=== PATIENT | female | born 1965 | race Caucasian/White ===

== ENCOUNTER 2019-01-30 18:50 | Emergency (ER) | payer OTHER ==
[~2019-01-30] VITALS: Ht 162.6 cm; Wt 83.6 kg
[~2019-01-30 18:50] MED LIST: ABILIFY5 MG PO; ADDERALL XR25 MG PO; ANTIDEPRESSION
[2019-01-30 19:30] VITALS: TEMP 98
[2019-01-30 21:41] LABS: COLLECTION METHOD CLEAN CATCH
[2019-01-30 21:57] LABS: BASO # 0.1 (0.0-0.2); BASO % 0.4 % (0.0-2.0); EOS # 0.2 (0.0-0.7); EOS % 1.4 % (0-4.0); GRAN # 9.6 (1.4-6.5); GRAN % 69.6 % (42.2-75.2); HEMATOCRIT 41.1 % (37.0-47.0); HEMOGLOBIN 13.8 g/dl (12.5-16.0); LYMPH # 3.2 (1.2-3.4); LYMPH % 23.1 % (20.0-51.0); MEAN CELL VOLUME 86 fl (80.0-100.0); MEAN CORPUSCULAR HEMOGLOBIN 29 pg (27.0-31.0); MEAN CORPUSCULAR HGB CONC 34 g/dl (33.0-37.0); MEAN PLATELET VOLUME 9.9 fl (7.4-10.4); MONO # 0.7 (0.1-0.6); MONO % 5.2 % (1.7-9.3); PLATELET COUNT 344 K/mm3 (130-400); RED BLOOD COUNT 4.76 M/mm3 (4.10-5.30); REDCELL DISTRIBUTION WIDTH-CV 14.2 % (11.5-14.5)
[2019-01-30 22:08] LABS: ALBUMIN 4.3 gm/dL (3.5-5.0); BILIRUBIN,TOTAL 0.4 mg/dL (0.0-1.0); CALCIUM 9.3 mg/dL (8.4-10.2); CREATININE, serum 1.04 (0.52-1.25); POTASSIUM 3.8 mmol/L (3.4-5.0)
[2019-01-30 22:14] LABS: MUCOUS Present /lpf; PH 5 (5-8); URINE APPEARANCE Hazy; URINE BACTERIA None Seen /hpf; URINE BILIRUBIN Negative (NEGATIVE); URINE BLOOD Negative (NEGATIVE); URINE COLOR Yellow; URINE GLUCOSE Negative (NEGATIVE); URINE KETONE Negative (NEGATIVE); URINE LEUKOCYTE ESTERASE 1+ (NEGATIVE); URINE NITRATE Negative (NEGATIVE); URINE PROTEIN(semi-quant) Negative (NEGATIVE); URINE UROBILINOGEN Negative (NEGATIVE)
[2019-01-30] MEDS ORDERED: CEFTIN500 MG PO (23:34)
[2019-01-30] MEDS ORDERED: NORCO 325 MG-51 TAB PO (23:34)
[2019-01-30 23:57] VITALS: BP 121/84; PULSE 68
== END 2019-01-30 23:57 | disposition home or self-care (01) ==
LOC: COL.ER 18:50
PROVIDERS: Emergency Medicine
DX: N12 Tubulo-interstitial nephritis, not specified as acute or chronic (principal); Z88.8 Allergy status to other drugs, medicaments and biological substances
CPT/HCPCS: J0696; J1170; J1885; J2405; J7030

== ENCOUNTER → 2019-06-09 | Outpatient (CLI) | payer OTHER ==
[~2019-06-09] MED LIST changes: +CEFTIN500 MG PO; +NORCO 325 MG-51 TAB PO
== END ==
LOC: COL.VAS 09:54
DX: M79.671 Pain in right foot (principal)

== ENCOUNTER 2019-08-26 11:07 | Inpatient (IN) | payer OTHER ==
[~2019-08-26] VITALS: Ht 162.6 cm; Wt 72.2 kg
[2019-08-26 12:08] LABS: HEMATOCRIT 37.1 % (37.0-47.0); HEMOGLOBIN 12.1 g/dl (12.5-16.0); MEAN CELL VOLUME 87 fl (80.0-100.0); MEAN CORPUSCULAR HEMOGLOBIN 28 pg (27.0-31.0); MEAN CORPUSCULAR HGB CONC 33 g/dl (33.0-37.0); MEAN PLATELET VOLUME 9.8 fl (7.4-10.4); PLATELET COUNT 254 K/mm3 (130-400); RED BLOOD COUNT 4.29 M/mm3 (4.10-5.30); REDCELL DISTRIBUTION WIDTH-CV 16.2 % (11.5-14.5)
[2019-08-26 12:10] LABS: INR 2.1 (0.8-3.0); PROTHROMBIN TIME 24.9 SECONDS (9.7-12.8)
[2019-08-26 12:18] LABS: ALBUMIN 4.3 gm/dL (3.5-5.0); BILIRUBIN,TOTAL 0.3 mg/dL (0.0-1.0); C-REACTIVE PROTEIN 2.4 mg/dL (0.0-0.9); CALCIUM 9.3 mg/dL (8.4-10.2); CREATININE, serum 0.82 (0.52-1.25); TOTAL PROTEIN 7.6 gm/dL (6.4-8.2)
[2019-08-26 12:44] LABS: BAND 2 % (0-10); EOSINOPHIL 2 % (0-4); LYMPHOCYTE 10 % (20.0-51.0); NEUTROPHILS 84 % (42.0-75.2); PLATELET ESTIMATE NORMAL (NORMAL)
[2019-08-26 12:45] LABS: ANISOCYTOSIS 1+
[2019-08-26] MEDS ORDERED: COUMADIN 5MG5 MG/TAB PO (14:18)
--- NOTE | 2019-08-26 18:42 | NUR ---
Got report for patient from ED nurse. report was given to night nurse
--- NOTE | 2019-08-26 18:50 | NUR ---
Arrived to medical floor at this time. Orientated to room. Denies needs.
[2019-08-26] MEDS ORDERED: ASPIRIN 81M81 MG/TA2 PO (19:13)
[2019-08-26] MEDS ORDERED: COUMADIN 22.5 MG/TAB PO (19:13)
[2019-08-26] MEDS ORDERED: PREDNISONE20 MG PO (19:14)
--- NOTE | 2019-08-26 19:23 | NUR ---
Resting in bed. Assessment complete. Right lower lobe crackles otherwise clear. Heart sounds normal. Bowels active x4. Pulses strong throughout. Right lower leg edema +1 with erythema. Reports pain in right lower extremity. Heparin gtt infusing at 13.1ml/hr into right AC without complications. Orientated to medical floor. Request something for pain. Denies other needs/questions at this time. Call light in reach. Spoke with Dr. Garrison for pain medications. Telephone order for norco 5/325 PO Q8H PRN given.
[2019-08-26 20:00] VITALS: BP 142/77; PULSE 61
[2019-08-26 20:01] VITALS: BP 142/77; PULSE 66
--- NOTE | 2019-08-26 20:15 | NUR ---
Provided patient RONIT jack at this time. Call light in reach.
--- NOTE | 2019-08-26 21:00 | NUR ---
CASTRO hose on as ordered. Denies needs. call light in reach.
[2019-08-26 22:12] VITALS: BP 123/90; PULSE 66; TEMP 98.8
--- NOTE | 2019-08-26 23:54 | NUR ---
Resting in bed. Rating pain 5/10, tolerable level. Denies needs. call light in reach.
[2019-08-27] VITALS (7 sets, daily range): BP systolic 106–157; BP diastolic 62–84; PULSE 57–67; TEMP 97.4–98.6
--- NOTE | 2019-08-27 01:13 | NUR ---
HepXa 0.93. Stopped at this time for 60 minutes per protocol.
--- NOTE | 2019-08-27 01:15 | NUR ---
HepXa 0.93. Stopped at this time
--- NOTE | 2019-08-27 02:14 | NUR ---
Patient reports continued right lower extremity pain. Spoke with sunita Bermudez to change norco to Q4H PRN.
--- NOTE | 2019-08-27 02:18 | NUR ---
Rates pain in right lower leg at 8/10. Provided with PRN norco at this time
--- NOTE | 2019-08-27 02:22 | NUR ---
Heparin gtt restarted at 0215. Dosing verified by KALPESH Douglas
--- NOTE | 2019-08-27 06:19 | NUR ---
Patient required x2 doses of norco for pain control in right lower extremity throughout night. Otherwise uneventful. Resting in bed this AM. Call light in reach.
--- NOTE | 2019-08-27 06:42 | NUR ---
Report given to KALPESH Avila
[2019-08-27 08:26] LABS: BASO # 0.1 (0.0-0.2); BASO % 0.5 % (0.0-2.0); EOS # 0.4 (0.0-0.7); GRAN # 8.5 (1.4-6.5); GRAN % 58.6 % (42.2-75.2); HEMATOCRIT 38.5 % (37.0-47.0); HEMOGLOBIN 12.3 g/dl (12.5-16.0); LYMPH # 4.6 (1.2-3.4); LYMPH % 31.7 % (20.0-51.0); MEAN CELL VOLUME 87 fl (80.0-100.0); MEAN CORPUSCULAR HEMOGLOBIN 28 pg (27.0-31.0); MEAN CORPUSCULAR HGB CONC 32 g/dl (33.0-37.0); MEAN PLATELET VOLUME 10.1 fl (7.4-10.4); MONO # 0.8 (0.1-0.6); MONO % 5.6 % (1.7-9.3); PLATELET COUNT 275 K/mm3 (130-400); RED BLOOD COUNT 4.44 M/mm3 (4.10-5.30); REDCELL DISTRIBUTION WIDTH-CV 16.6 % (11.5-14.5)
[2019-08-27 08:35] LABS: CALCIUM 9.6 mg/dL (8.4-10.2); CREATININE, serum 0.7 (0.52-1.25); POTASSIUM 4.1 mmol/L (3.4-5.0)
--- NOTE | 2019-08-27 09:28 | NUR ---
hepXa 0.57, no changed, continue to run at 11ml/hr, next recheck at 1500
--- NOTE | 2019-08-27 09:52 | NUR ---
Assessment completed, alert/oriented, reports 01/20 right leg pain/ [place] given per request, pedal pulses are palpable, no redness or swelling noted to BLE, lungs CTA/ no resp.difficulty noted, heart RRR, heparin gtt infusin at 11ml/hr (1100 units/ hr), she denies other needs at this time, will continue to monitor
--- NOTE | 2019-08-27 14:00 | NUR ---
patient is going down for IVC fileter placement at this time
--- NOTE | 2019-08-27 14:48 | NUR ---
SEE MERGE FOR MEDICATION ADMINISTRATION TIMES AND INTRA AND POST SEDATION ASSESSMENTS.
--- NOTE | 2019-08-27 16:04 | NUR ---
Heparin gtt stopped at 1400 for IVC filter placement, patient arrived back to floor at 1515, VS stable, heparin restarted at previous rate of 11ml/hr at 1520
--- NOTE | 2019-08-27 19:13 | NUR ---
Patient still doing well post IVC filter placement, right groin access site is soft and non-tender, dressing C/D/I
--- NOTE | 2019-08-27 20:15 | NUR ---
Patient reports unrelieved pain in right lower extremity 02/20. Per Dr. Bladimir dorsey to increase dose to 1-2 tabs Q4H PRN. Will provide to patient
--- NOTE | 2019-08-27 20:20 | NUR ---
Resting in bed. Assessment complete. Lungs clear. Heart sounds normal. Bowels active x4. Pulses strong throughout. Right lower extremity edema +1. IV to right AC infusing heparin at 11 ml/hr. Reports 8/10 right lower extremity pain. Would like norco dose increased. Denies other needs at this time. Call light in reach.
[2019-08-28] VITALS (7 sets, daily range): BP systolic 94–128; BP diastolic 53–94; PULSE 55–66; TEMP 97.5–98.4
--- NOTE | 2019-08-28 00:43 | NUR ---
Reports 8/10 right leg pain. Provided with RONIT jack at this time. Call light in reach.
--- NOTE | 2019-08-28 02:57 | NUR ---
Telemetry called stating patient pulse dropping into 40s. Patient asymptomatic at this time. Spoke with Dr. Bladimir dorsey to decrease telemetry parameters to 40
--- NOTE | 2019-08-28 05:20 | NUR ---
Reports 8/10 right leg pain after ambulating to restroom. Provided with PRN norco at this time.
[2019-08-28 06:11] LABS: BASO # 0.1 (0.0-0.2); BASO % 0.5 % (0.0-2.0); EOS # 0.5 (0.0-0.7); EOS % 3.7 % (0-4.0); GRAN # 6.8 (1.4-6.5); GRAN % 56.9 % (42.2-75.2); HEMATOCRIT 37.2 % (37.0-47.0); LYMPH # 3.9 (1.2-3.4); LYMPH % 32.1 % (20.0-51.0); MEAN CELL VOLUME 87 fl (80.0-100.0); MEAN CORPUSCULAR HEMOGLOBIN 28 pg (27.0-31.0); MEAN CORPUSCULAR HGB CONC 32 g/dl (33.0-37.0); MEAN PLATELET VOLUME 10.2 fl (7.4-10.4); MONO # 0.7 (0.1-0.6); MONO % 6.1 % (1.7-9.3); PLATELET COUNT 274 K/mm3 (130-400); RED BLOOD COUNT 4.29 M/mm3 (4.10-5.30); REDCELL DISTRIBUTION WIDTH-CV 16.5 % (11.5-14.5)
[2019-08-28 06:26] LABS: CALCIUM 9.3 mg/dL (8.4-10.2); CREATININE, serum 0.78 (0.52-1.25); POTASSIUM 4.2 mmol/L (3.4-5.0)
--- NOTE | 2019-08-28 06:30 | NUR ---
Patient required PRN norco x3 throughout night for right lower extremity pain. Otherwise uneventful night. Resting in bed this AM.
--- NOTE | 2019-08-28 06:41 | NUR ---
Report given to KALPESH Avila
--- NOTE | 2019-08-28 07:14 | NUR ---
HepXa level 0.55, no change and continue TRA 11ml/hr, next level check on 08/29/19 @ 0600
[2019-08-28 07:31] LABS: ERYTHROCYTE SEDIMENTATION RATE 23 mm/hr (0-30)
--- NOTE | 2019-08-28 08:13 | NUR ---
Assessment completed, alert/oriented, vital signs stable, reporting still having some right leg pain/ [place] dosing increased overnight and this has helped decrease discomfort, NO redness/warmth/swelling noted to RLE, distal pulses are palpable, lungs CTA/ no resp.difficulty noted, O2 sats WNL on room air, Heparin Gtt infusing at 11 ml/hr/ next HepXa check 08/30/19 @ 0600, right groin venous access site S/p IVC filter placment is soft non-tender and dressing is C/D/I, she denies other needs at this time
--- NOTE | 2019-08-28 14:34 | NUR ---
Plan: To return home with boyfriend Kenneth [phone] as care support. Patient also indicated that she wanted boyfriend listed as EMR. Patient does not presently have a DPOA and declined one at this time. Patient resides out between [facility]. Assess: SW met with patient at her bedside. Patient reported that she does not utilize any DME, and that her PCP is Dr. Tidwell with no upcoming appointments. Patient reported that [facility] with no complications. Patient declined the need for HH services at this time. Patient did report concern about not having enough income, and needing to apply for SSDI. Plan: Patient was educated about [facility] services that would be able to assist Patient in applying for social security. She was provided with contact information for [facility]. Patient was also provided a community resource packet with contact information and application site highlighted, and other community resources that could assist her. SW will continue to follow.
[2019-08-28 16:01] LABS: COLLECTION METHOD CLEAN CATCH
[2019-08-28 16:12] LABS: PH 6 (5-8); SQUAMOUS EPITHELIAL 0-2 /hpf; URINE APPEARANCE Clear; URINE BACTERIA Rare /hpf; URINE BILIRUBIN Negative (NEGATIVE); URINE BLOOD 1+ (NEGATIVE); URINE COLOR Straw; URINE GLUCOSE Negative (NEGATIVE); URINE KETONE Negative (NEGATIVE); URINE LEUKOCYTE ESTERASE Negative (NEGATIVE); URINE NITRATE Negative (NEGATIVE); URINE PROTEIN(semi-quant) Negative (NEGATIVE); URINE RBC 0-2 /hpf; URINE UROBILINOGEN Negative (NEGATIVE)
--- NOTE | 2019-08-28 20:07 | NUR ---
Resting in bed. Assessment complete. Bases bilaterally crackles otherwise clear. No shortness of breath. Heart sounds clear. Pulses strong throughout. No edema noted at this time. IV right AC heparin infusing at 11 ml/hr per protocol. Reports 5/10 right lower leg pain. Request norco at 2129. Reports nausea, zofran due at 2129. Denies other needs at this time. Call light in reach.
--- NOTE | 2019-08-28 21:28 | NUR ---
Rates pain 8/10 in right lower leg. Provided with PRN norco and reports nausea. Providing PRN zofran. Denies other needs at this time
--- NOTE | 2019-08-29 00:18 | NUR ---
Sitting in bed. Denies needs. Denies pain. Call light in reach.
[2019-08-29 03:55] VITALS: BP 110/57; PULSE 57; TEMP 98.4
--- NOTE | 2019-08-29 05:59 | NUR ---
Patient required x2 doses of norco and x2 doses of zofran for right lower leg pain and nausea. Otherwise uneventful night. Resting in bed this AM. Call light in reach.
[2019-08-29 06:20] LABS: BASO # 0.1 (0.0-0.2); BASO % 0.4 % (0.0-2.0); EOS # 0.4 (0.0-0.7); EOS % 3.7 % (0-4.0); GRAN # 7.4 (1.4-6.5); GRAN % 65.6 % (42.2-75.2); HEMOGLOBIN 11.8 g/dl (12.5-16.0); LYMPH # 2.8 (1.2-3.4); LYMPH % 24.2 % (20.0-51.0); MEAN CELL VOLUME 87 fl (80.0-100.0); MEAN CORPUSCULAR HEMOGLOBIN 28 pg (27.0-31.0); MEAN CORPUSCULAR HGB CONC 32 g/dl (33.0-37.0); MEAN PLATELET VOLUME 10.4 fl (7.4-10.4); MONO # 0.6 (0.1-0.6); MONO % 5.5 % (1.7-9.3); PLATELET COUNT 282 K/mm3 (130-400); RED BLOOD COUNT 4.19 M/mm3 (4.10-5.30); REDCELL DISTRIBUTION WIDTH-CV 16.5 % (11.5-14.5)
[2019-08-29 06:26] LABS: HEMATOCRIT 36.4 % (37.0-47.0)
[2019-08-29 06:35] LABS: CALCIUM 9.5 mg/dL (8.4-10.2); CREATININE, serum 0.76 (0.52-1.25); POTASSIUM 4.1 mmol/L (3.4-5.0)
--- NOTE | 2019-08-29 07:15 | NUR ---
Report given to KALPESH Herring
[2019-08-29 07:56] VITALS: BP 127/64; PULSE 61; TEMP 97.7
--- NOTE | 2019-08-29 09:00 | NUR ---
Assessment charted. Patient A&Ox4, reporting pain in right leg. No pain medication requested. VSS. IV CDI, heparin infusing. No further needs expressed from patient. Call light within reach
[2019-08-29 12:13] VITALS: BP 119/65; PULSE 59; TEMP 98.4
[2019-08-29 15:54] VITALS: BP 124/53; PULSE 65; TEMP 97.9
--- NOTE | 2019-08-29 17:48 | NUR ---
Patient had an uneventful day. VSS. IV CDI, heparin infusing. Patient wheeled around hallway by family member. Complaints of pain in right forearm and right leg. No pain medication requested. No further needs expressed from patient. Call light within reach
[2019-08-29 19:29] VITALS: BP 93/62; PULSE 90; TEMP 97.9
--- NOTE | 2019-08-29 19:45 | NUR ---
Shift assessment complete. Pt resting in bed, awake, a&o, cooperative c cares. Pt reports continued pain to RLE, PRN pain med recently admin. Pt denies any other c/o. IV patent; hep gtt infusing per orders. Pt denies further needs. Call light in reach, will continue to monitor.
[2019-08-29 23:19] VITALS: BP 111/68; PULSE 66; TEMP 97.3
[2019-08-30 03:15] VITALS: BP 116/61; PULSE 71; TEMP 97.6
[2019-08-30 06:35] LABS: BASO # 0.1 (0.0-0.2); BASO % 0.4 % (0.0-2.0); EOS # 0.4 (0.0-0.7); EOS % 3.1 % (0-4.0); GRAN # 8.6 (1.4-6.5); GRAN % 70.6 % (42.2-75.2); HEMOGLOBIN 11.8 g/dl (12.5-16.0); LYMPH # 2.4 (1.2-3.4); LYMPH % 19.8 % (20.0-51.0); MEAN CELL VOLUME 86 fl (80.0-100.0); MEAN CORPUSCULAR HEMOGLOBIN 28 pg (27.0-31.0); MEAN CORPUSCULAR HGB CONC 33 g/dl (33.0-37.0); MEAN PLATELET VOLUME 10.2 fl (7.4-10.4); MONO # 0.7 (0.1-0.6); MONO % 5.6 % (1.7-9.3); PLATELET COUNT 293 K/mm3 (130-400); RED BLOOD COUNT 4.21 M/mm3 (4.10-5.30); REDCELL DISTRIBUTION WIDTH-CV 16.4 % (11.5-14.5)
[2019-08-30 06:47] LABS: HEMATOCRIT 36.3 % (37.0-47.0)
--- NOTE | 2019-08-30 07:25 | NUR ---
Radiology called about pt procedure today. Pt on hep gtt, needs to be stopped for at least 4 hours. Discussed with pharmacy and radiology. Hep gtt stopped at 0715. Pt to now have lower Rt neck biopsy this afternoon. Will have consent signed.
[2019-08-30 07:50] LABS: INR 1.1 (0.8-3.0); PROTHROMBIN TIME 13.3 SECONDS (9.7-12.8)
[2019-08-30 08:27] VITALS: BP 127/68; PULSE 59; TEMP 97.8
--- NOTE | 2019-08-30 09:59 | NUR ---
My instructor, Stella Denise, was present at the time of the medication administration of [place] and Zofran. During which, as allowed, pt was able to take a small sip of water to get the medication down. Pt recieved this supervised, pharmacological intervention at 9:55.
--- NOTE | 2019-08-30 10:34 | NUR ---
Pt assessment completed and charted. Pt has Ria student also caring for pt this morning. Pt sitting in bed, A&O, independent in room. Pt has RAC IV, had hep gtt running at 11 ml/hr this morning, stopped at 0715 for procedure this afternoon. Pt to have US guided biopsy to right lower neck. Pt rated leg pain 3/10 earlier this morning and then told the student it was now at a 7/10. Per pt the "pain comes and goes". Pt received [place] and Zofran per sep. Pt has rt leg pain from toes to behind knee. Minimal swelling noted, no redness, and rt leg is slightly warmer to the touch. Pt on room air, breathing is even and unlabored. No other concerns expressed at this time.
[2019-08-30 12:00] VITALS: BP 133/55; PULSE 61; TEMP 97.3
--- NOTE | 2019-08-30 12:19 | NUR ---
Pt down for biopsy at this time.
--- NOTE | 2019-08-30 13:05 | NUR ---
Pt back from procedure, bandaid to rt lower neck, CDI. No issues noted. Diet advanced
--- NOTE | 2019-08-30 15:33 | NUR ---
Hep gtt dc'd. Pt switched to Xarelto. Student nurse to administer. Pt to discharge today.
[2019-08-30 15:59] VITALS: BP 120/68; PULSE 65; TEMP 97.4
[2019-08-30] MEDS ORDERED: XARELTO15 MG PO (16:04)
[2019-08-30] MEDS ORDERED: NORCO 325 MG-51 TAB PO (16:07)
--- NOTE | 2019-08-30 17:03 | NUR ---
DENISE met with the patient to follow up on discharge plan. The patient reports that her insurance was through her employer and that she no longer works there. She states that the insurance will no longer be active, as of agustin. She was interested in applying for Medicaid and disability. DENISE consulted Financial Counselor, Jose Rafael. Jose Rafael met with the patient and completed those apps. The patient is being prescribed Xeralto and [place]. She states that she is not able to afford this. DENISE provided the patient with a med voucher to [facility] for those two scripts. Total: $316.44. DENISE faxed the med voucher and scripts to Nathanael at [facility]. DENISE also discussed getting set up with a PCP. The patient was interested in [facility] in [place]. DENISE attempted to contact them to schedule an appointment. DENISE left them two voicemails. DENISE updated the patient. The patient reports that she can contact [facility] to schedule the appointment. The patient is to discharge back home with her boyfriend today, 08/30. No additional needs at this time.
--- NOTE | 2019-08-30 17:20 | NUR ---
REMOVED PATIENT'S IV AT 1700. PATIENT WAS DISCHARGED AND WHEELED TO HER BOYFRIEND'S TRUCK AT THE FRONT ENTRANCE AT 1715 AFTER RN TOMMY WENT OVER HER MEDICATIONS AND DISCHARGE INFORMATION.
--- NOTE | 2019-08-30 17:39 | NUR ---
Pt discharged home, discharge instructions discussed and reviewed w/ patient who verbalized understanding. IV dc'd by nursing manager. All questions answered, no further needs. Pt escorted out via [facility] nursing manager.
--- NOTE | 2019-08-31 14:27 | NUR ---
DENISE received a phone call back from [facility] in [place]. The office manager receptionist reports that their office was closed for Pres's Day. DENISE provided Bj with the patient's contact information. The receptionst reports that they will contact the patient to set up an appointment.
== END 2019-08-30 17:15 | disposition home or self-care (01) | DRG 264 ==
LOC: COL.ER 11:07 → MEDICAL 15:34
PROVIDERS: Hospitalist; Nurse Practitioner; Physician Assistant; ADMIT Student in an Organized Health Care Education/Training Program
PROC: 07B13ZX Excision of Right Neck Lymphatic, Percutaneous Approach, Diagnostic (ICD-10-PCS; principal; 2019-08-30)
DX: I82.401 Acute embolism and thrombosis of unspecified deep veins of right lower extremity (principal); F41.9 Anxiety disorder, unspecified; F90.9 Attention-deficit hyperactivity disorder, unspecified type; F17.210 Nicotine dependence, cigarettes, uncomplicated; R91.1 Solitary pulmonary nodule; F31.9 Bipolar disorder, unspecified; D72.829 Elevated white blood cell count, unspecified; D64.9 Anemia, unspecified; R59.1 Generalized enlarged lymph nodes; Z79.01 Long term (current) use of anticoagulants; Z79.82 Long term (current) use of aspirin; Z86.711 Personal history of pulmonary embolism; Z89.421 Acquired absence of other right toe(s); Z90.710 Acquired absence of both cervix and uterus; Z88.5 Allergy status to narcotic agent; Z88.0 Allergy status to penicillin
CPT/HCPCS: 99223-AI; 99231-AI; 99233-AI; 99239; C1880; J1644; J2250; J3010; Q9967

== ENCOUNTER 2019-09-10 10:31 | Inpatient (IN) | payer OTHER ==
[2019-09-10] VITALS (204 sets, daily range): BP systolic 113–126; BP diastolic 63–81; PULSE 74–80; TEMP 97.5–98.4; O2SAT 92–99
[~2019-09-10] VITALS: Ht 162.6 cm; Wt 78.6 kg
[~2019-09-10 10:31] MED LIST changes: +ASPIRIN 81M81 MG/TA2 PO; +COUMADIN 22.5 MG/TAB PO; +COUMADIN 5MG5 MG/TAB PO; +PREDNISONE20 MG PO; +XARELTO15 MG PO
[2019-09-10 11:06] LABS: BASO # 0.1 (0.0-0.2); BASO % 0.4 % (0.0-2.0); EOS # 0.2 (0.0-0.7); EOS % 1.1 % (0-4.0); GRAN # 10.6 (1.4-6.5); GRAN % 80.8 % (42.2-75.2); LYMPH # 1.6 (1.2-3.4); MEAN CELL VOLUME 88 fl (80.0-100.0); MEAN CORPUSCULAR HGB CONC 32 g/dl (33.0-37.0); MONO # 0.7 (0.1-0.6); MONO % 5.2 % (1.7-9.3); PLATELET COUNT 290 K/mm3 (130-400); RED BLOOD COUNT 3.13 M/mm3 (4.10-5.30); REDCELL DISTRIBUTION WIDTH-CV 16.5 % (11.5-14.5)
[2019-09-10 11:07] LABS: HEMATOCRIT 27.6 % (37.0-47.0); HEMOGLOBIN 8.8 g/dl (12.5-16.0); MEAN CORPUSCULAR HEMOGLOBIN 28 pg (27.0-31.0)
[2019-09-10 11:23] LABS: ALBUMIN 4.6 gm/dL (3.5-5.0); BILIRUBIN,TOTAL 0.3 mg/dL (0.0-1.0); C-REACTIVE PROTEIN 5.6 mg/dL (0.0-0.9); CALCIUM 9.9 mg/dL (8.4-10.2); CREATININE, serum 0.81 (0.52-1.25); POTASSIUM 4.1 mmol/L (3.4-5.0); TOTAL PROTEIN 8.2 gm/dL (6.4-8.2)
[2019-09-10 11:30] LABS: INR 1.3 (0.8-3.0)
[2019-09-10 11:49] LABS: COLLECTION METHOD CLEAN CATCH
[2019-09-10 11:58] LABS: MUCOUS Present /lpf; PH 5 (5-8); URINE APPEARANCE Hazy; URINE BACTERIA Rare /hpf; URINE BILIRUBIN Negative (NEGATIVE); URINE BLOOD 3+ (NEGATIVE); URINE COLOR Yellow; URINE GLUCOSE Negative (NEGATIVE); URINE KETONE Negative (NEGATIVE); URINE LEUKOCYTE ESTERASE Trace (NEGATIVE); URINE NITRATE Negative (NEGATIVE); URINE PROTEIN(semi-quant) Negative (NEGATIVE); URINE RBC 0-2 /hpf; URINE UROBILINOGEN Negative (NEGATIVE)
--- NOTE | 2019-09-10 15:50 | NUR ---
Phone report received from LYUBOV Flores RN. Pt arrived to [facility] room 15 via bed. Pt A/Ox4. c/o nausea. Assessment completed. VSS. Discussed plan of care r/t post vitals and NPO status. Pt verbalized understanding. Call light in reach.
--- NOTE | 2019-09-10 16:03 | NUR ---
Dr Castro at bedside to see pt.
--- NOTE | 2019-09-10 19:00 | NUR ---
RECEIVED REPORT FROM SUSHIL JOHNSON RN. PT SITTING UP IN BED WATCHING TV ON RA. CALL LIGHT WITHIN REACH. DENIES ANY NEEDS AT THIS TIME. VSS.
--- NOTE | 2019-09-10 19:34 | NUR ---
report given to sharan tavares.
[2019-09-10 20:28] LABS: HEMOGLOBIN 6.4 g/dl (12.5-16.0)
--- NOTE | 2019-09-10 20:35 | NUR ---
NOTIFIED ANNABELLA SNYDER OF PT'S HGB 6.4 AND REQUEST FOR CLEAR LIQUID DIET. NEW ORDERS RECEIVED. PT STATES SHE DOES AGREE TO BLOOD ADMINISTRATION AND UPDATED ON POC. CONSENT ON CHART. VSS.
[2019-09-11] VITALS (260 sets, daily range): BP systolic 98–142; BP diastolic 52–81; PULSE 71–78; TEMP 97.3–98.6; O2SAT 91–97
[2019-09-11 05:16] LABS: BASO % 0.2 % (0.0-2.0); EOS # 0.2 (0.0-0.7); EOS % 2.3 % (0-4.0); GRAN # 5.8 (1.4-6.5); GRAN % 70.3 % (42.2-75.2); LYMPH # 1.6 (1.2-3.4); LYMPH % 19.7 % (20.0-51.0); MEAN CELL VOLUME 91 fl (80.0-100.0); MEAN CORPUSCULAR HGB CONC 32 g/dl (33.0-37.0); MEAN PLATELET VOLUME 9.9 fl (7.4-10.4); MONO # 0.6 (0.1-0.6); MONO % 7.1 % (1.7-9.3); RED BLOOD COUNT 2.45 M/mm3 (4.10-5.30); REDCELL DISTRIBUTION WIDTH-CV 15.8 % (11.5-14.5)
[2019-09-11 05:19] LABS: HEMATOCRIT 22.2 % (37.0-47.0); HEMOGLOBIN 7.1 g/dl (12.5-16.0); MEAN CORPUSCULAR HEMOGLOBIN 29 pg (27.0-31.0); PLATELET COUNT 158 K/mm3 (130-400)
[2019-09-11 05:35] LABS: CALCIUM 7.9 mg/dL (8.4-10.2); CREATININE, serum 0.72 (0.52-1.25); MAGNESIUM 1.8 mg/dL (1.6-2.3); POTASSIUM 3.8 mmol/L (3.4-5.0)
--- NOTE | 2019-09-11 07:40 | NUR ---
Dr. Rene notified of hgb 7.1. does not provide orders for transfusion or re-draw at this time. Provider states he will determine POC and additional orders following patient rounds. Care ongoing.
--- NOTE | 2019-09-11 10:19 | NUR ---
Visited, listened, and provided spiritual care.
[2019-09-11 19:24] LABS: HEMATOCRIT 26.4 % (37.0-47.0); HEMOGLOBIN 8.4 g/dl (12.5-16.0)
--- NOTE | 2019-09-11 20:26 | NUR ---
Pt to Rm 310 at 1715 from ICU. A&O. PRBC infusing in R AC at 200mL/hr. HR reg. LS clear bilat. Bilat hands edematous with R>L. Denies pain to tooth absess. States she is not hungry for evening meal. INT intact in L FA. Reports she feels like her lungs hurt but denies SOA. Sats 94-96% on RA.
[2019-09-11 23:25] LABS: HEMATOCRIT 25.3 % (37.0-47.0); HEMOGLOBIN 8.2 g/dl (12.5-16.0)
[2019-09-12 04:22] VITALS: BP 128/69; PULSE 75; TEMP 98
--- NOTE | 2019-09-12 05:13 | NUR ---
PT HAS HAD AN UNEVENTFUL NIGHT. SLEPT WELL, PAIN MANAGED. PT STATES SHE DID NOT WAKE UP IN ANY PAIN AT THIS TIME. WILL ENDORSE TO ONCOMING RN.
[2019-09-12 06:45] LABS: BASO % 0.3 % (0.0-2.0); EOS # 0.3 (0.0-0.7); EOS % 3.5 % (0-4.0); GRAN # 5.6 (1.4-6.5); GRAN % 65.2 % (42.2-75.2); LYMPH % 23.6 % (20.0-51.0); MEAN CELL VOLUME 89 fl (80.0-100.0); MEAN CORPUSCULAR HGB CONC 32 g/dl (33.0-37.0); MEAN PLATELET VOLUME 10.8 fl (7.4-10.4); MONO # 0.6 (0.1-0.6); MONO % 6.9 % (1.7-9.3); PLATELET COUNT 151 K/mm3 (130-400); RED BLOOD COUNT 2.99 M/mm3 (4.10-5.30); REDCELL DISTRIBUTION WIDTH-CV 16.7 % (11.5-14.5)
[2019-09-12 06:52] LABS: HEMATOCRIT 26.6 % (37.0-47.0); HEMOGLOBIN 8.4 g/dl (12.5-16.0); MEAN CORPUSCULAR HEMOGLOBIN 28 pg (27.0-31.0)
[2019-09-12 07:07] LABS: CALCIUM 8.6 mg/dL (8.4-10.2); CREATININE, serum 0.75 (0.52-1.25); MAGNESIUM 1.9 mg/dL (1.6-2.3); POTASSIUM 3.5 mmol/L (3.4-5.0)
[2019-09-12 08:07] VITALS: BP 131/72; PULSE 66; TEMP 98.6
[2019-09-12 11:34] VITALS: BP 153/78; PULSE 67; TEMP 97.5
--- NOTE | 2019-09-12 12:03 | NUR ---
Patient resting in bed upon assessment. States she has a headache at about 4/10 but does not have any other pain at this time. While eating breakfast patient began to feel nauseous. Zofran given. No emesis. Nausea subsided after 30-45 minutes. Tylenol given for headache, headache continued to worsen, [place] given. Closed blinds. Patient states her headahce is making her feel very tired and is starting to make her face hurt as well. Patient will rest. Will reassess after [place]. Call light in reach.
[2019-09-12 16:07] VITALS: BP 167/77; PULSE 76; TEMP 98.1
[2019-09-12 19:35] VITALS: BP 156/81; PULSE 77; TEMP 97.4
--- NOTE | 2019-09-12 23:38 | NUR ---
PT IN BED, SITTING UP, DENIES PAIN OR DISCOMFORT, BUT DOES HAVE SOME NAUSEA AND VOMITING, GAVE ZOFRAN. PT ENCOURAGED TO DRINK BOWEL PREP. PT HAS CALL LIGHT WITHIN REACH AND PERSONAL BELONGINGS. NO NEEDS AT THIS TIME.
[2019-09-13] VITALS (7 sets, daily range): BP systolic 124–153; BP diastolic 70–84; PULSE 69–76; TEMP 97.3–98.6
--- NOTE | 2019-09-13 05:06 | NUR ---
PT DID NOT FINISH HER BOWEL PREP RECOMMENDED. PT HAD TWO DARK STOOLS DURING THE NIGHT. PT HAS C/O HEADACHE THAT SHE FEELS MAYBE DUE TO NOT HAVING CAFFEINE FOR FOUR DAYS. PT GIVEN TYLENOL FOR HEADACHE. PT IN BED WITH HOB AT 45 DEGREE ANGLE AND RESTING AT THIS TIME, CALL LIGHT WITHIN REACH.
--- NOTE | 2019-09-13 06:14 | NUR ---
DR. MENDEZ ADVISED THAT PT HAS ONLY DRANK ABOUT 1/4 OF GO-[address]. MENDEZ GAVE ORDERS TO ADVISE PT TO DRINK BOWEL PREP UP UNTIL ABOUT 0900, AND IF NOT THEN WILL HAVE TO DO THE PROCEDURE TOMORROW MORNING, BUT PT WILL BE ON CLEAR LIQUID DIET AND HAVE TO DRINK ALL THE BOWEL PREP. ALSO, DR. MENDEZ WANTS TO BE CALLED BACK AT 0900 TODAY, TO BE ADVISED ON HOW THE PT DID ON DRINKING HER BOWEL PREP.
--- NOTE | 2019-09-13 07:51 | NUR ---
Patient is alert and oriented. patient is concern about her new diagnosis of cancer. she verbalize her fear of not knowing what to do from her. Patient said she is no able to finish her bowel prep for colonoscopy this morning.
--- NOTE | 2019-09-13 09:24 | NUR ---
Patient sitting up in bed at this time. Denies any pain/discomfort but reports nausea is still present after zofran administration. Patient encouraged to drink bowel prep. Patient belongings at bedside and call light within reach.
[2019-09-13 09:57] LABS: MEAN CELL VOLUME 88 fl (80.0-100.0); MEAN CORPUSCULAR HGB CONC 33 g/dl (33.0-37.0); MEAN PLATELET VOLUME 10.5 fl (7.4-10.4); PLATELET COUNT 176 K/mm3 (130-400); RED BLOOD COUNT 2.45 M/mm3 (4.10-5.30); REDCELL DISTRIBUTION WIDTH-CV 16.5 % (11.5-14.5)
[2019-09-13 10:01] LABS: CALCIUM 8.8 mg/dL (8.4-10.2); CREATININE, serum 0.79 (0.52-1.25); POTASSIUM 3.5 mmol/L (3.4-5.0)
[2019-09-13 10:06] LABS: HEMATOCRIT 21.5 % (37.0-47.0); HEMOGLOBIN 7.1 g/dl (12.5-16.0); MEAN CORPUSCULAR HEMOGLOBIN 29 pg (27.0-31.0)
--- NOTE | 2019-09-13 11:42 | NUR ---
Patient sitting in bed at this time. Patient states she has a headache rating it a 6/10. Tylenol PRN given at this time. Patient belongings at bedside, family at bedside and call light is within reach. Patient encouraged to continue drinking bowel prep. No further requests at this time.
[2019-09-13 11:53] LABS: EOSINOPHIL 1 % (0-4); LYMPHOCYTE 20 % (20.0-51.0); NEUTROPHILS 78 % (42.0-75.2); PLATELET ESTIMATE NORMAL (NORMAL)
[2019-09-13 11:55] LABS: HYPOCHROMIA 2+
--- NOTE | 2019-09-13 11:59 | NUR ---
Initial visit; Patient thanked Cooper Apprentice for looking in on her and offering spiritual care. Cooper Apprentice will keep patient in her prayers.
--- NOTE | 2019-09-13 14:55 | NUR ---
Assistant Front Office Manager met with patient to discuss discharge planning. Patient lives in [place], [place] with her boyfriend, Kenneth (ph#[phone]). Patient did have primary care set up at the [facility] however she will not return there after a bad experience. Patient is open to having primary care set up at the [facility]. Patient does not use any DME and is independent with ADLS although she states she has to take it slow. Patient does not have Advance Directives but wanted to establish DPOA-HC as she does not want her children or ex- to make medical choices for her if she couldn't. SW assisted patient in completing form. Patient states she wants to designate her boyfriend, Kenneth Dudley. DENISE and RNKamala provided witness signature. DENISE provided original and copies to patient then placed additional copy in patient's chart. Patient plans to return home upon discharge and reports she will follow up with oncology. SW to continue to follow as needed.
[2019-09-13 15:43] LABS: HEMATOCRIT 26.3 % (37.0-47.0); HEMOGLOBIN 8.8 g/dl (12.5-16.0)
--- NOTE | 2019-09-13 19:23 | NUR ---
patient is alert and oriented. I witness patient signing document that authorize her boyfriend - Kenneth as her DPOE patient was informed of her colonoscopy at 3pm on 09/13. patient complained of head ache today. she recieved tylenol for the Headache. patient is resting in bed at the moment
--- NOTE | 2019-09-13 20:13 | NUR ---
PT A/O X4, SITTING IN BED WITH HOB AT 45 DEGREE ANGLE. PT C/O OF LUNG PAIN GAVE MORPHINE THAT BROUGHT IT DOWN TO 3/10. PT WORKING ON DRINKING BOWEL PREP. PT WAS ENCOURAGE TO FINISH THE BOTTLE WHICH HAS 1/3 LEFT. PT ADVISES THAT SHE IS WORKING ON IT, BUT IT IS VERY HARD FOR HER TO DO SO. PT HAS CALL LIGHT WITHIN REACH AND PERSONAL BELONGINGS.
[2019-09-14] VITALS (8 sets, daily range): BP systolic 108–142; BP diastolic 65–78; PULSE 71–78; TEMP 97.5–99.3
--- NOTE | 2019-09-14 03:56 | NUR ---
PT WAS ENCOURAGE TO FINISH HER BOWEL PREP. PT ADVISED THAT SHE DRANK ONE MORE GLASS AND SHE DID NOT HAVE TO GO TO THE BATHROOM, THEREFORE, SHE WAS DONE TRYING TO DRINK IT. PT HAD COMPLETES OF LUNG PAIN, WHICH SHE WAS GIVEN MORPHINE X2 THIS SHIFT SO FAR. PT HAS BEEN SLEEPING SINCE AROUND 2300, RESP EVEN AND UNLABORED WITH NO S/S OF PAIN OR DISCOMFORT. PAINT TRIMMER PIPE BOWLS HAS GONE IN THERE AND PT DID WAKE UP AND COMMUNICATED WITH HER AND THEN WENT BACK TO SLEEP. CALL LIGHT WITHIN REACH.
[2019-09-14 05:58] LABS: BASO # 0.1 (0.0-0.2); BASO % 0.5 % (0.0-2.0); EOS # 0.3 (0.0-0.7); EOS % 2.5 % (0-4.0); GRAN % 78.4 % (42.2-75.2); LYMPH # 1.2 (1.2-3.4); LYMPH % 11.4 % (20.0-51.0); MEAN CELL VOLUME 88 fl (80.0-100.0); MEAN CORPUSCULAR HGB CONC 33 g/dl (33.0-37.0); MEAN PLATELET VOLUME 11.1 fl (7.4-10.4); MONO # 0.7 (0.1-0.6); MONO % 6.8 % (1.7-9.3); PLATELET COUNT 162 K/mm3 (130-400); RED BLOOD COUNT 3.02 M/mm3 (4.10-5.30); REDCELL DISTRIBUTION WIDTH-CV 16.8 % (11.5-14.5)
[2019-09-14 06:00] LABS: HEMATOCRIT 26.7 % (37.0-47.0); HEMOGLOBIN 8.8 g/dl (12.5-16.0); MEAN CORPUSCULAR HEMOGLOBIN 29 pg (27.0-31.0)
--- NOTE | 2019-09-14 06:29 | NUR ---
CALLED DR. CROWE IN REFERENCE TO PT NOT DRINKING ALL OF THE BOWEL PREP. ADVISED THAT PT STATED THAT SHE HAS NOT BEEN USING THE BATHROOM EVEN WHEN SHE DRINKS THE BOWEL PREP AND REFUSED TO FINISH DRINKING IT. DR. CROWE ADVISED THAT SHE WAS GOING TO TOUCH BAS WITH DR. MENDEZ SINCE HE WILL BE THE ONE DOING THE COLONOSCOPY.
[2019-09-14 07:02] LABS: CALCIUM 8.7 mg/dL (8.4-10.2); CREATININE, serum 0.83 (0.52-1.25); POTASSIUM 3.2 mmol/L (3.4-5.0)
--- NOTE | 2019-09-14 07:19 | NUR ---
Dr. Martinez call in reference to patient doing bowel prep for colonoscopy. Dr. Martinez wanted to know if she finished it and what was is her stool like now. Advised him that she did not finish her bowel prep. Pt stated that it was not working for her and she was not going to drink anymore of it or be NPO any longer. Also, advised that her stool was watering with some green in it that sunk to the bottom. Dr. Martinez thought that they can still do the Colonoscopy and he is moving it to 1100 this morning. Also, to tell the patient to remain NPO until then. Patient was advised of what Dr. Martinez had said. Patient advised that she will remain NPO until then.
--- NOTE | 2019-09-14 10:27 | NUR ---
Assessment completed, alert/oriented, vital signs stable, denies pain, hemaglobin 8.8 this morning, patient scheduled for colonoscopy at 1100 today, she did better with bowel prep and reports liquid stools/ she drank about 3/4 of Kaya, consent signed, has been NPo, denies other needs at this time, will continue to monitor
--- NOTE | 2019-09-14 10:59 | NUR ---
Follow-up visit; Patient thanked Bed Placement Coordinator for looking in on her and reminding her Spiritual Care is always available and wishing her well and praying she looks to the presence of God.
--- NOTE | 2019-09-14 11:45 | NUR ---
patient arrived back from EGD, alert/oriented, vital signs stable, denies pain, significant other present, denies needs, will contineu to ap, notified hospitalist of her being back to room
--- NOTE | 2019-09-14 20:00 | NUR ---
Patient assesssed at this time. Alert and oriented x 4, and able to make needs known. Denies having pain and discomfort at this time. Peripheral IV to left forearm. Denies SOB and dyspnea. LS CTA. Respirations even and unlabored. HRR. Telmetry in place: sinus. Capillary refill less than 3 seconds. Non-tenting skin turgor. BSAx4. Abdomen soft and non-tender. No edema. Voices no questions, needs, or concerns at this time. Resting in bed with call light within reach. SCDs on.
[2019-09-15 04:20] VITALS: BP 120/56; PULSE 76; TEMP 98.4
--- NOTE | 2019-09-15 04:35 | NUR ---
Patient complaining of level 4 headache. Given PRN APAP as requested at this time.
--- NOTE | 2019-09-15 05:27 | NUR ---
Patient reports decreased headache. Voices no further questions, needs, or concerns at this time. Received IV ABX per orders. Resting in bed with call light within reach.
[2019-09-15 06:06] LABS: BASO % 0.3 % (0.0-2.0); EOS # 0.2 (0.0-0.7); EOS % 2.3 % (0-4.0); GRAN # 8.2 (1.4-6.5); GRAN % 78.2 % (42.2-75.2); LYMPH # 1.3 (1.2-3.4); MEAN CELL VOLUME 89 fl (80.0-100.0); MEAN CORPUSCULAR HGB CONC 32 g/dl (33.0-37.0); MEAN PLATELET VOLUME 10.8 fl (7.4-10.4); MONO # 0.7 (0.1-0.6); MONO % 6.7 % (1.7-9.3); PLATELET COUNT 170 K/mm3 (130-400); REDCELL DISTRIBUTION WIDTH-CV 17.1 % (11.5-14.5)
[2019-09-15 06:13] LABS: CALCIUM 8.6 mg/dL (8.4-10.2); CREATININE, serum 0.81 (0.52-1.25); HEMATOCRIT 29.2 % (37.0-47.0); HEMOGLOBIN 9.4 g/dl (12.5-16.0); MAGNESIUM 1.6 mg/dL (1.6-2.3); MEAN CORPUSCULAR HEMOGLOBIN 28 pg (27.0-31.0)
[2019-09-15 07:43] VITALS: BP 146/74; PULSE 69; TEMP 97.8
[2019-09-15] MEDS ORDERED: PEPCID 20MG TAB20 MG PO (10:36)
[2019-09-15 11:19] VITALS: BP 151/83; PULSE 75; TEMP 97.5
--- NOTE | 2019-09-15 12:42 | NUR ---
PATIENT DC TO HOME ACCOMPANIED BY FAMILY VIA PRIVATE VEHICLE. PRINTED DC INSTRUCTIONS TO INCLUDE F/U, MEDICATIONS REVIEWED WITH PATIENT. ALL QUESTIONS AND CONCERNS ADDRESSED DURING REVIEW. LEFT UNIT VIA WC ACCOMPANIED BY PCT.
--- NOTE | 2019-09-15 13:04 | NUR ---
Supervisor Body Assembly attended clinical rounds with the team and patient to discharge home today. Patient to follow up with Dr. Castro, Oncologist upon discharge. Patient requested SW assist her with reviewing letters from [employer] and [employer]. SW reviewed letters with patient. DENISE advised patient that per letter from [employer], an application was submitted for social security disability by Jose Rafael Financial Counselor during last hospitalization. SW advised patient she would need to review, sign, and return to Social Security Administration. Patient verbalized understanding. SW reviewed letter from [employer] and advised patient she needs to provide confirmation of Social Security application and proof of income. DENISE collaborated with Jose Rafael Financial Counselor who advised he will fax confirmation to [employer]. Patient states she does not have any bank accounts but has an old payroll card with about $3 on it. Per Jose Rafael, patient will need to contact number on payroll card and request documentation of balance. Patient verbalized understanding. DENISE provided contact information for Jose Rafael to patient. Patient to discharge home today with her boyfriend, Kenneth providing transportation.
== END 2019-09-15 12:44 | disposition home or self-care (01) | DRG 378 ==
LOC: COL.ER 10:31 → MEDICAL 12:06 → IMCU 12:06 → COL.ER 14:25 → MEDICAL 09-11 17:30
PROVIDERS: Family Medicine; Internal Medicine Gastroenterology; Physician Assistant; Student in an Organized Health Care Education/Training Program; ADMIT Internal Medicine
PROC: 0DJ08ZZ Inspection of Upper Intestinal Tract, Via Natural or Artificial Opening Endoscopic (ICD-10-PCS; principal; 2019-09-10 15:15)
DX: K29.81 Duodenitis with bleeding (principal); D62 Acute posthemorrhagic anemia; C78.00 Secondary malignant neoplasm of unspecified lung; C76.0 Malignant neoplasm of head, face and neck; F41.9 Anxiety disorder, unspecified; F31.9 Bipolar disorder, unspecified; N26.1 Atrophy of kidney (terminal); E87.6 Hypokalemia; F17.210 Nicotine dependence, cigarettes, uncomplicated; K04.7 Periapical abscess without sinus; F90.9 Attention-deficit hyperactivity disorder, unspecified type; Z86.718 Personal history of other venous thrombosis and embolism; Z86.711 Personal history of pulmonary embolism; Z90.710 Acquired absence of both cervix and uterus; Z90.89 Acquired absence of other organs
CPT/HCPCS: 99223-AI; 99232-AI; 99233-AI; 99239; C9113; J2270; J2405; J2704; J3010; J7030; P9016

== ENCOUNTER → 2019-11-24 | Outpatient (CLI) | payer OTHER ==
[~2019-11-24] MED LIST changes: +CEPHALEXIN500 M1 PO; +PEPCID 20MG TAB20 MG PO; +PERCOCET 325 MG1 TA2 PO; +ZOFRAN 4MG T4 MG/TAB PO
== END ==
LOC: COL.RAD 11:34
DX: C34.11 Malignant neoplasm of upper lobe, right bronchus or lung (principal); G93.89 Other specified disorders of brain
CPT/HCPCS: A9585

== ENCOUNTER → 2019-12-23 | Outpatient (CLI) | payer SELFPAY ==
[~2019-12-23] MED LIST changes: +COMPAZINE 5MG TA5 MG PO; +LIPITOR 40MG TA40 MG PO; +LOVENOX 8080 MG/0.8 SQ; +MORPHINE 1515 MG/TAB PO; +OMNICEF 300MG300 MG PO; +OXYCONTIN 10MG10 MG PO; +PLAVIX 75MG TAB75 MG PO; +ROXICODONE 55 MG/TAB PO
== END ==
LOC: SUN.CLI 12-07 12:11 → DIET.TELE 14:00
DX: E46 Unspecified protein-calorie malnutrition (principal)
CPT/HCPCS: G2063

== ENCOUNTER 2019-12-31 10:26 | Emergency (ER) | payer OTHER ==
[~2019-12-31] VITALS: Ht 162.6 cm; Wt 61.8 kg
[~2019-12-31 10:26] MED LIST changes: -COMPAZINE 5MG TA5 MG PO; -MORPHINE 1515 MG/TAB PO; -OMNICEF 300MG300 MG PO; -ROXICODONE 55 MG/TAB PO
[2019-12-31 10:34] VITALS: TEMP 96.9
[2019-12-31 11:17] LABS: COLLECTION METHOD CLEAN CATCH
[2019-12-31 11:24] LABS: MUCOUS Present /lpf; PH 6 (5-8); SQUAMOUS EPITHELIAL 0-2 /hpf; URINE APPEARANCE Clear; URINE BACTERIA Rare /hpf; URINE BILIRUBIN Negative (NEGATIVE); URINE BLOOD Negative (NEGATIVE); URINE COLOR Yellow; URINE GLUCOSE Negative (NEGATIVE); URINE KETONE Negative (NEGATIVE); URINE LEUKOCYTE ESTERASE Negative (NEGATIVE); URINE NITRATE Negative (NEGATIVE); URINE PROTEIN(semi-quant) 1+ (NEGATIVE); URINE RBC 0-2 /hpf; URINE UROBILINOGEN Negative (NEGATIVE)
[2019-12-31 13:45] VITALS: BP 116/72; PULSE 96
[2020-01-01] MEDS ORDERED: OMNICEF 300MG300 MG PO ×2 (07:36→08:21)
[2020-01-01] MEDS ORDERED: ROXICODONE 55 MG/TAB PO (07:51)
[2020-01-01] MEDS ORDERED: COMPAZINE 5MG TA5 MG PO (07:52)
== END 2019-12-31 13:45 | disposition home or self-care (01) ==
LOC: COL.ER 10:26
PROVIDERS: Physician Assistant
DX: M54.5 Low back pain (principal); M54.9 Dorsalgia, unspecified; R25.2 Cramp and spasm; F31.9 Bipolar disorder, unspecified; I10 Essential (primary) hypertension; C34.90 Malignant neoplasm of unspecified part of unspecified bronchus or lung; Z86.718 Personal history of other venous thrombosis and embolism; Z87.442 Personal history of urinary calculi; Z86.711 Personal history of pulmonary embolism; Z90.710 Acquired absence of both cervix and uterus; Z90.89 Acquired absence of other organs; Z79.02 Long term (current) use of antithrombotics/antiplatelets
CPT/HCPCS: J1170; J3360

== ENCOUNTER 2020-01-01 04:37 | Emergency (ER) | payer SELFPAY ==
[~2020-01-01] VITALS: Ht 162.6 cm; Wt 61.8 kg
[2020-01-01 04:40] VITALS: TEMP 96.8
[2020-01-01 05:47] LABS: COLLECTION METHOD CLEAN CATCH
[2020-01-01 05:59] LABS: PH 6 (5-8); URINE APPEARANCE Hazy; URINE BACTERIA Rare /hpf; URINE BILIRUBIN Negative (NEGATIVE); URINE BLOOD Negative (NEGATIVE); URINE COLOR Yellow; URINE GLUCOSE Negative (NEGATIVE); URINE KETONE Negative (NEGATIVE); URINE LEUKOCYTE ESTERASE 2+ (NEGATIVE); URINE NITRATE Negative (NEGATIVE); URINE PROTEIN(semi-quant) Negative (NEGATIVE); URINE UROBILINOGEN Negative (NEGATIVE)
[2020-01-01 06:00] LABS: BASO % 0.1 % (0.0-2.0); EOS % 0.2 % (0-4.0); GRAN # 11.2 (1.4-6.5); GRAN % 88.9 % (42.2-75.2); LYMPH # 0.9 (1.2-3.4); LYMPH % 6.9 % (20.0-51.0); MEAN CELL VOLUME 75 fl (80.0-100.0); MEAN CORPUSCULAR HGB CONC 30 g/dl (33.0-37.0); MEAN PLATELET VOLUME 9.8 fl (7.4-10.4); MONO # 0.5 (0.1-0.6); MONO % 3.6 % (1.7-9.3); PLATELET COUNT 265 K/mm3 (130-400); RED BLOOD COUNT 3.96 M/mm3 (4.10-5.30); REDCELL DISTRIBUTION WIDTH-CV 17.4 % (11.5-14.5)
[2020-01-01 06:05] LABS: HEMATOCRIT 29.6 % (37.0-47.0); MEAN CORPUSCULAR HEMOGLOBIN 23 pg (27.0-31.0)
[2020-01-01 06:12] LABS: ALBUMIN 3.2 gm/dL (3.5-5.0); BILIRUBIN,TOTAL 0.2 mg/dL (0.0-1.0); C-REACTIVE PROTEIN 4.7 mg/dL (0.0-0.9); CALCIUM 8.5 mg/dL (8.4-10.2); CREATININE, serum 0.6 (0.52-1.25); POTASSIUM 3.9 mmol/L (3.4-5.0); TOTAL PROTEIN 6.5 gm/dL (6.4-8.2)
[2020-01-01] MEDS ORDERED: OMNICEF 300MG300 MG PO ×2 (07:36→08:21)
[2020-01-01] MEDS ORDERED: ROXICODONE 55 MG/TAB PO (07:51)
[2020-01-01] MEDS ORDERED: COMPAZINE 5MG TA5 MG PO (07:52)
[2020-01-01 08:26] VITALS: BP 108/70; PULSE 72
[2020-01-05] MEDS ORDERED: MORPHINE 1515 MG/TAB PO (12:11)
== END 2020-01-01 08:28 | disposition home or self-care (01) ==
LOC: COL.ER 04:37
PROVIDERS: Emergency Medicine
DX: M54.9 Dorsalgia, unspecified (principal); E78.5 Hyperlipidemia, unspecified; Z85.118 Personal history of other malignant neoplasm of bronchus and lung; Z98.890 Other specified postprocedural states; Z90.710 Acquired absence of both cervix and uterus; Z79.899 Other long term (current) drug therapy; F17.210 Nicotine dependence, cigarettes, uncomplicated
CPT/HCPCS: J0696; J1170; J2360; J2405; J3010; J7030; Q9967

== ENCOUNTER 2020-01-24 10:40 | Emergency (ER) | payer SELFPAY ==
[~2020-01-24] VITALS: Ht 162.6 cm; Wt 61.8 kg
[~2020-01-24 10:40] MED LIST changes: +COMPAZINE 5MG TA5 MG PO; +MORPHINE 1515 MG/TAB PO; +OMNICEF 300MG300 MG PO; +ROXICODONE 55 MG/TAB PO
[2020-01-24 10:45] VITALS: TEMP 97.7
[2020-01-24 11:49] VITALS: BP 115/82; PULSE 95
== END 2020-01-24 11:52 | disposition home or self-care (01) ==
LOC: COL.ER 10:40
DX: R07.89 Other chest pain (principal); G89.29 Other chronic pain; C34.90 Malignant neoplasm of unspecified part of unspecified bronchus or lung; Z79.02 Long term (current) use of antithrombotics/antiplatelets

== ENCOUNTER 2020-02-16 10:00 | Outpatient (RCR) | payer OTHER ==
[2019-11-24 12:58] VITALS: BP 128/73; PULSE 71; TEMP 97.3
--- NOTE | 2019-12-01 11:10 | NUR ---
here for cares. With sterile technique right upper arm PICC dressing change done with insertion site cleansed with ChloraPrep 1, chlorhexidine impregnated disc applied, skin prep, StatLock, and Tegaderm applied. No signs or symptoms of IV complications noted. No concerns voiced. Patient to return next week for cares. Patient voices understanding of instructions.
[2019-12-01 11:47] VITALS: BP 107/66; PULSE 76; TEMP 97.5
[2019-12-01 11:52] LABS: INR 1.5 (0.8-3.0); PROTHROMBIN TIME 16.4 SECONDS (9.7-12.8)
--- NOTE | 2019-12-15 11:40 | NUR ---
Pt did not show for apt this am,attempted to call pt,unable to leave voicemail.
--- NOTE | 2019-12-15 12:20 | NUR ---
here for cares. With sterile technique right upper arm PICC dressing change staff was insertion site cleansed with ChloraPrep 1, chlorhexidine impregnated disc applied, skin prep, StatLock, and Tegaderm applied. No signs or symptoms of IV complications noted. No concerns voiced. Arm wrapped with Boo to protect catheter. Patient to return next week for cares is scheduled in the express unit. Patient voiced understanding of instructions.
[2019-12-15 12:50] LABS: HEMOGLOBIN 10.9 g/dl (12.5-16.0); MEAN CELL VOLUME 76 fl (80.0-100.0); MEAN CORPUSCULAR HEMOGLOBIN 24 pg (27.0-31.0); MEAN CORPUSCULAR HGB CONC 32 g/dl (33.0-37.0); MEAN PLATELET VOLUME 9.7 fl (7.4-10.4); PLATELET COUNT 474 K/mm3 (130-400); RED BLOOD COUNT 4.58 M/mm3 (4.10-5.30); REDCELL DISTRIBUTION WIDTH-CV 16.5 % (11.5-14.5)
[2019-12-15 12:55] LABS: HEMATOCRIT 34.6 % (37.0-47.0)
[2019-12-15 12:58] LABS: BILIRUBIN,TOTAL 0.3 mg/dL (0.0-1.0); CREATININE, serum 0.73 (0.52-1.25); POTASSIUM 4.3 mmol/L (3.4-5.0)
[2019-12-15 13:17] LABS: BAND 2 % (0-10); LYMPHOCYTE 26 % (20.0-51.0); NEUTROPHILS 67 % (42.0-75.2)
[2019-12-15 13:18] LABS: ANISOCYTOSIS 2+; HYPOCHROMIA 1+; MICROCYTOSIS 3+; PLATELET ESTIMATE NORMAL (NORMAL)
[2019-12-15 13:21] VITALS: BP 128/75; PULSE 72; TEMP 97.8
[2019-12-22 11:00] VITALS: BP 134/68; PULSE 75; TEMP 97.3
--- NOTE | 2019-12-29 13:30 | NUR ---
Here for cares. with sterile technique right upper arm PICC dressing change done with insertion site cleansed with chloraprep x 1, chlorhexidine impregnated disk applied, skin prep, stat lock, and tegaderm applied. no signs or symptoms of IV complications noted. no concerns voiced. to return next week for cares. voiced understanding of instructions.
[2019-12-29 13:35] VITALS: BP 106/77; PULSE 72; TEMP 97.7
--- NOTE | 2020-01-05 12:00 | NUR ---
Here for cares. with sterile technique right upper arm PICC dressing change done with insertion site cleansed with chloraprep x 1, chlorhexidine impregnated disk applied, skin prep, stat lock, and tegaderm applied. flushed port with 40ml normal saline without resistance and/or difficulty. had patient cough. unable to obtain blood return. will drawn lab via periperal stick today. if continue with no blood return on next visit with perform chest x ray and instill cath amanda if needed. voiced understanding of plan. to return next week for cares. voiced understanding of instructions.
[2020-01-05 12:13] VITALS: BP 96/64; PULSE 73; TEMP 97.4
--- NOTE | 2020-01-05 12:27 | NUR ---
No blood return via PICC.JANIE Knox called to assess.per Lisette,instructions given to wait a week and if no blood return at next visit,we will persue a chest xray for placement.Catheter flushes easily,no pain per patient.lab called for lab draw.Pt verbalizes understanding.
[2020-01-05 12:48] LABS: ALBUMIN 3.8 gm/dL (3.5-5.0); BILIRUBIN,TOTAL 0.3 mg/dL (0.0-1.0); CALCIUM 9.2 mg/dL (8.4-10.2); CREATININE, serum 0.77 (0.52-1.25); MEAN CELL VOLUME 75 fl (80.0-100.0); MEAN CORPUSCULAR HGB CONC 31 g/dl (33.0-37.0); MEAN PLATELET VOLUME 9.7 fl (7.4-10.4); PLATELET COUNT 248 K/mm3 (130-400); POTASSIUM 3.6 mmol/L (3.4-5.0); RED BLOOD COUNT 4.29 M/mm3 (4.10-5.30); REDCELL DISTRIBUTION WIDTH-CV 18.5 % (11.5-14.5); TOTAL PROTEIN 7.6 gm/dL (6.4-8.2)
[2020-01-05 12:51] LABS: HEMOGLOBIN 9.8 g/dl (12.5-16.0); MEAN CORPUSCULAR HEMOGLOBIN 23 pg (27.0-31.0)
[2020-01-05 13:42] LABS: BAND 7 % (0-10); EOSINOPHIL 5 % (0-4); LYMPHOCYTE 14 % (20.0-51.0); NEUTROPHILS 68 % (42.0-75.2)
[2020-01-05 13:43] LABS: ANISOCYTOSIS 1+; MICROCYTOSIS 1+; PLATELET ESTIMATE NORMAL (NORMAL); TARGET CELLS 1+
[2020-01-12 10:00] VITALS: BP 105/70; PULSE 82; TEMP 98.6
--- NOTE | 2020-01-12 10:00 | NUR ---
Here for cares. with sterile technique right upper arm PICC intact with sterile dressing change done with insertion site cleansed with chloraprep x 1, chlorhexidine impregnated disk applied, skin prep, stat lock, and tegaderm applied. no signs or symptoms of IV complications noted. no concerns voiced. patient reported unable to obtain blood return. port flushed with 10ml normal saline with good blood return noted. re-wrapped with walter to protect catheter. to return next week for cares. voiced understanding of instructions.
[2020-01-12 10:28] LABS: MEAN CELL VOLUME 73 fl (80.0-100.0); MEAN CORPUSCULAR HGB CONC 31 g/dl (33.0-37.0); MEAN PLATELET VOLUME 9.8 fl (7.4-10.4); PLATELET COUNT 267 K/mm3 (130-400)
[2020-01-12 10:31] LABS: HEMATOCRIT 29.3 % (37.0-47.0); HEMOGLOBIN 9.2 g/dl (12.5-16.0); MEAN CORPUSCULAR HEMOGLOBIN 23 pg (27.0-31.0)
[2020-01-12 11:02] LABS: BAND 2 % (0-10); EOSINOPHIL 4 % (0-4); LYMPHOCYTE 17 % (20.0-51.0); NEUTROPHILS 72 % (42.0-75.2); PLATELET ESTIMATE NORMAL (NORMAL)
[2020-01-12 11:03] LABS: ANISOCYTOSIS 1+; MICROCYTOSIS 1+
[2020-01-19 10:15] VITALS: BP 88/64; PULSE 79; TEMP 98.2
--- NOTE | 2020-01-19 10:15 | NUR ---
here for cares. With sterile technique right upper arm PICC dressing change done with insertion site cleansed with ChloraPrep 1, chlorhexidine impregnated disc applied, skin prep, StatLock, and Tegaderm applied. No signs or symptoms of IV complications noted. No concerns voiced. Arm wrapped with Boo to protect catheter. Patient to return next week for cares. Patient voiced understanding of instructions.
[2020-01-19 10:28] LABS: MEAN CELL VOLUME 74 fl (80.0-100.0); MEAN CORPUSCULAR HGB CONC 32 g/dl (33.0-37.0); MEAN PLATELET VOLUME 10.6 fl (7.4-10.4); PLATELET COUNT 211 K/mm3 (130-400); RED BLOOD COUNT 3.99 M/mm3 (4.10-5.30); REDCELL DISTRIBUTION WIDTH-CV 22.4 % (11.5-14.5)
[2020-01-19 11:18] LABS: HEMATOCRIT 29.7 % (37.0-47.0); HEMOGLOBIN 9.4 g/dl (12.5-16.0); MEAN CORPUSCULAR HEMOGLOBIN 24 pg (27.0-31.0)
[2020-01-19 11:37] LABS: ANISOCYTOSIS 3+; BAND 11 % (0-10); EOSINOPHIL 2 % (0-4); HYPOCHROMIA 1+; LYMPHOCYTE 16 % (20.0-51.0); METAMYELOCYTE 2 % (0-0); MICROCYTOSIS 2+; NEUTROPHILS 65 % (42.0-75.2); PLATELET ESTIMATE NORMAL (NORMAL); POIKILOCYTOSIS 1+
--- NOTE | 2020-01-26 10:15 | NUR ---
Here for cares. with sterile technique right upper arm PICC dressing change done with insertion site cleansed with chloraprep x 1, chlorhexidine impregnated disk applied, skin prep, stat lock, and tegaderm applied. no signs or symptoms of IV complications noted. no concerns voiced. re-wrapped with walter to protect catheter. to return next week for cares. voiced understanding of instructions.
[2020-01-26 10:29] VITALS: BP 99/66; PULSE 81; TEMP 98.8
[2020-01-26 10:51] LABS: MEAN CELL VOLUME 76 fl (80.0-100.0); MEAN CORPUSCULAR HGB CONC 32 g/dl (33.0-37.0); MEAN PLATELET VOLUME 10.8 fl (7.4-10.4); PLATELET COUNT 125 K/mm3 (130-400); RED BLOOD COUNT 3.98 M/mm3 (4.10-5.30); REDCELL DISTRIBUTION WIDTH-CV 25.1 % (11.5-14.5)
[2020-01-26 10:53] LABS: HEMATOCRIT 30.2 % (37.0-47.0); HEMOGLOBIN 9.5 g/dl (12.5-16.0); MEAN CORPUSCULAR HEMOGLOBIN 24 pg (27.0-31.0)
[2020-01-26 11:14] LABS: BAND 2 % (0-10); BASOPHIL 1 % (0-2); LYMPHOCYTE 17 % (20.0-51.0); NEUTROPHILS 73 % (42.0-75.2)
[2020-01-26 11:15] LABS: ANISOCYTOSIS 2+
[2020-01-26 11:16] LABS: MICROCYTOSIS 1+
[2020-01-26 11:18] LABS: PLATELET ESTIMATE DECREASED (NORMAL)
[2020-01-26 11:21] LABS: HYPOCHROMIA 1+
[2020-02-02 10:13] VITALS: BP 92/68; PULSE 81; TEMP 97.9
--- NOTE | 2020-02-02 10:15 | NUR ---
PICC intact right upper arm. With sterile technique right upper arm PICC dressing change done with insertion site cleansed with ChloraPrep 1, chlorhexidine impregnated disc applied, skin prep, StatLock, and Tegaderm applied. No signs or symptoms of IV complications noted. No concerns voiced. Arm wrapped with Boo to protect catheter. Patient to return next week for cares. Patient voiced understanding of instructions.
[2020-02-02 10:26] LABS: MEAN CELL VOLUME 77 fl (80.0-100.0); MEAN CORPUSCULAR HGB CONC 32 g/dl (33.0-37.0); MEAN PLATELET VOLUME 11.1 fl (7.4-10.4); PLATELET COUNT 57 K/mm3 (130-400); RED BLOOD COUNT 3.76 M/mm3 (4.10-5.30); REDCELL DISTRIBUTION WIDTH-CV 26.5 % (11.5-14.5)
[2020-02-02 10:28] LABS: HEMATOCRIT 29.1 % (37.0-47.0); HEMOGLOBIN 9.3 g/dl (12.5-16.0); MEAN CORPUSCULAR HEMOGLOBIN 25 pg (27.0-31.0)
[2020-02-02 11:21] LABS: BAND 5 % (0-10); EOSINOPHIL 1 % (0-4); LYMPHOCYTE 13 % (20.0-51.0); NEUTROPHILS 79 % (42.0-75.2)
[2020-02-02 11:49] LABS: ANISOCYTOSIS 2+; PLATELET ESTIMATE DECREASED (NORMAL); TEAR DROP CELLS 1+
[2020-02-07 13:30] LABS: HEMOGLOBIN 10.1 g/dl (12.5-16.0); MEAN CELL VOLUME 78 fl (80.0-100.0); MEAN CORPUSCULAR HEMOGLOBIN 25 pg (27.0-31.0); MEAN CORPUSCULAR HGB CONC 32 g/dl (33.0-37.0); PLATELET COUNT 57 K/mm3 (130-400); RED BLOOD COUNT 4.03 M/mm3 (4.10-5.30); REDCELL DISTRIBUTION WIDTH-CV 28.3 % (11.5-14.5)
[2020-02-07 13:37] VITALS: BP 107/75; PULSE 93; TEMP 98.1
[2020-02-07 13:38] LABS: ALBUMIN 4.3 gm/dL (3.5-5.0); BILIRUBIN,TOTAL 0.4 mg/dL (0.0-1.0); CREATININE, serum 0.8 (0.52-1.25); POTASSIUM 3.8 mmol/L (3.4-5.0); TOTAL PROTEIN 8.2 gm/dL (6.4-8.2)
[2020-02-07 14:05] LABS: BAND 2 % (0-10); EOSINOPHIL 2 % (0-4); LYMPHOCYTE 14 % (20.0-51.0); NEUTROPHILS 81 % (42.0-75.2)
[2020-02-07 14:06] LABS: ANISOCYTOSIS 3+; HYPOCHROMIA 1+; PLATELET ESTIMATE DECREASED (NORMAL); TARGET CELLS 1+
[2020-02-07 14:07] LABS: MICROCYTOSIS 1+; POIKILOCYTOSIS 1+
[2020-02-07 14:08] LABS: HEMATOCRIT 31.5 % (37.0-47.0)
[2020-02-09 11:40] LABS: ALBUMIN 3.9 gm/dL (3.5-5.0); BILIRUBIN,TOTAL 0.3 mg/dL (0.0-1.0); CALCIUM 9.3 mg/dL (8.4-10.2); CREATININE, serum 0.66 (0.52-1.25); POTASSIUM 4.3 mmol/L (3.4-5.0); TOTAL PROTEIN 7.4 gm/dL (6.4-8.2)
[2020-02-09 11:45] VITALS: BP 88/66; PULSE 79; TEMP 97.4
[~2020-02-16] VITALS: Ht 162.6 cm; Wt 68.7 kg
[2020-02-16 10:00] VITALS: BP 93/62; PULSE 87; TEMP 98
--- NOTE | 2020-02-16 10:00 | NUR ---
Here for cares. with sterile technique right upper arm PICC dressing change done with insertion site cleansed with chloraprep x 1, chlorhexidine impregated disk applied, skin prep, stat lock, and tegaderm applied. no signs or symptoms of IV complications noted. no concerns voiced. re-wrapped with walter to protect catheter. to return next week for cares. voiced understanding of instructions.
[2020-02-16 10:15] LABS: MEAN CELL VOLUME 82 fl (80.0-100.0); MEAN CORPUSCULAR HGB CONC 32 g/dl (33.0-37.0); MEAN PLATELET VOLUME 10.2 fl (7.4-10.4); PLATELET COUNT 108 K/mm3 (130-400); RED BLOOD COUNT 3.25 M/mm3 (4.10-5.30); REDCELL DISTRIBUTION WIDTH-CV 29.8 % (11.5-14.5)
[2020-02-16 10:16] LABS: HEMATOCRIT 26.6 % (37.0-47.0); HEMOGLOBIN 8.5 g/dl (12.5-16.0); MEAN CORPUSCULAR HEMOGLOBIN 26 pg (27.0-31.0)
[2020-02-16 10:33] LABS: BAND 3 % (0-10); EOSINOPHIL 1 % (0-4); LYMPHOCYTE 17 % (20.0-51.0); NEUTROPHILS 70 % (42.0-75.2)
[2020-02-16 10:34] LABS: ANISOCYTOSIS 2+; PLATELET ESTIMATE DECREASED (NORMAL)
[2020-02-16 10:35] LABS: MICROCYTOSIS 1+
[2020-02-23] MEDS ORDERED: ROXICODONE 55 MG/TAB PO (10:48)
== END 2020-02-22 | disposition still patient (30) ==
LOC: EUO
PROVIDERS: Internal Medicine; Internal Medicine Medical Oncology; Internal Medicine Pulmonary Disease
DX: C34.12 Malignant neoplasm of upper lobe, left bronchus or lung (principal); C34.91 Malignant neoplasm of unspecified part of right bronchus or lung
CPT/HCPCS: C1751

== ENCOUNTER 2020-03-20 15:05 | Emergency (ER) | payer OTHER, MEDICAID ==
[~2020-03-20] VITALS: Ht 162.6 cm; Wt 57.3 kg
[2020-03-20 15:11] VITALS: TEMP 97.6
[2020-03-20 15:33] LABS: BASO % 0.3 % (0.0-2.0); EOS # 0.2 (0.0-0.7); EOS % 1.4 % (0-4.0); GRAN # 9.4 (1.4-6.5); GRAN % 88.5 % (42.2-75.2); HEMOGLOBIN 11.7 g/dl (12.5-16.0); LYMPH # 0.3 (1.2-3.4); LYMPH % 3.1 % (20.0-51.0); MEAN CELL VOLUME 87 fl (80.0-100.0); MEAN CORPUSCULAR HEMOGLOBIN 29 pg (27.0-31.0); MEAN CORPUSCULAR HGB CONC 33 g/dl (33.0-37.0); MEAN PLATELET VOLUME 10.1 fl (7.4-10.4); MONO # 0.7 (0.1-0.6); MONO % 6.1 % (1.7-9.3); PLATELET COUNT 87 K/mm3 (130-400); RED BLOOD COUNT 4.06 M/mm3 (4.10-5.30); REDCELL DISTRIBUTION WIDTH-CV 24.9 % (11.5-14.5)
[2020-03-20 15:38] LABS: ALBUMIN 3.8 gm/dL (3.5-5.0); BILIRUBIN,TOTAL 0.6 mg/dL (0.0-1.0); CALCIUM 9.2 mg/dL (8.4-10.2); CREATININE, serum 0.75 (0.52-1.25); POTASSIUM 3.1 mmol/L (3.4-5.0); TOTAL PROTEIN 6.9 gm/dL (6.4-8.2)
[2020-03-20 15:44] LABS: HEMATOCRIT 35.5 % (37.0-47.0)
[2020-03-20 15:57] LABS: INR 1.3 (0.8-3.0); PROTHROMBIN TIME 14.8 SECONDS (9.7-12.8)
[2020-03-20 16:00] LABS: PARTIAL THROMBOPLASTIN TIME 40.7 SECONDS (26.0-37.0)
[2020-03-20 18:50] VITALS: BP 136/55; PULSE 62
== END 2020-03-20 18:52 | disposition short-term general hospital (02) ==
LOC: COL.ER 15:05
PROVIDERS: Emergency Medicine
DX: I66.02 Occlusion and stenosis of left middle cerebral artery (principal); G81.94 Hemiplegia, unspecified affecting left nondominant side; Z79.02 Long term (current) use of antithrombotics/antiplatelets
CPT/HCPCS: J7030; Q9967

== ENCOUNTER 2020-03-22 10:00 | Outpatient (RCR) | payer OTHER, MEDICAID ==
[2020-02-23 10:50] VITALS: BP 99/58; PULSE 70; TEMP 97.8
[2020-02-23 11:31] LABS: ALBUMIN 3.8 gm/dL (3.5-5.0); BILIRUBIN,TOTAL 0.3 mg/dL (0.0-1.0); CALCIUM 9.5 mg/dL (8.4-10.2); CREATININE, serum 0.75 (0.52-1.25); POTASSIUM 4.2 mmol/L (3.4-5.0); TOTAL PROTEIN 7.4 gm/dL (6.4-8.2)
[2020-02-23 11:32] LABS: MEAN CELL VOLUME 83 fl (80.0-100.0); MEAN CORPUSCULAR HGB CONC 33 g/dl (33.0-37.0); MEAN PLATELET VOLUME 11.3 fl (7.4-10.4); PLATELET COUNT 163 K/mm3 (130-400); RED BLOOD COUNT 3.51 M/mm3 (4.10-5.30); REDCELL DISTRIBUTION WIDTH-CV 30.5 % (11.5-14.5)
[2020-02-23 11:33] LABS: HEMATOCRIT 29.2 % (37.0-47.0); HEMOGLOBIN 9.6 g/dl (12.5-16.0); MEAN CORPUSCULAR HEMOGLOBIN 27 pg (27.0-31.0)
[2020-02-23 12:11] LABS: ANISOCYTOSIS 3+; BAND 9 % (0-10); EOSINOPHIL 2 % (0-4); LYMPHOCYTE 15 % (20.0-51.0); NEUTROPHILS 70 % (42.0-75.2); PLATELET ESTIMATE NORMAL (NORMAL)
--- NOTE | 2020-03-01 10:00 | NUR ---
PICC intact right upper arm with sterile dressing change done with insertion site cleansed with chloraprep x 1, chlorhexidine impregnated disk applied, skin prep, stat lock, and tegaderm applied. no signs or symptoms of IV complications noted. no concerns voiced. re-wrapped with walter to protect catheter. to return next week for cares. voiced understanding of instructions.
[2020-03-01 10:13] VITALS: BP 94/66; PULSE 76; TEMP 97.6
[2020-03-01 10:17] LABS: HEMOGLOBIN 10.1 g/dl (12.5-16.0); MEAN CELL VOLUME 85 fl (80.0-100.0); MEAN CORPUSCULAR HEMOGLOBIN 27 pg (27.0-31.0); MEAN CORPUSCULAR HGB CONC 32 g/dl (33.0-37.0); MEAN PLATELET VOLUME 10.4 fl (7.4-10.4); PLATELET COUNT 251 K/mm3 (130-400); RED BLOOD COUNT 3.74 M/mm3 (4.10-5.30)
[2020-03-01 10:35] LABS: HEMATOCRIT 31.8 % (37.0-47.0)
[2020-03-01 10:36] LABS: ALBUMIN 3.9 gm/dL (3.5-5.0); BILIRUBIN,TOTAL 0.3 mg/dL (0.0-1.0); CALCIUM 9.5 mg/dL (8.4-10.2); CREATININE, serum 0.76 (0.52-1.25); POTASSIUM 4.2 mmol/L (3.4-5.0); TOTAL PROTEIN 7.6 gm/dL (6.4-8.2)
[2020-03-01 11:04] LABS: BAND 7 % (0-10); BASOPHIL 1 % (0-2); EOSINOPHIL 1 % (0-4); LYMPHOCYTE 5 % (20.0-51.0); METAMYELOCYTE 1 % (0-0); NEUTROPHILS 82 % (42.0-75.2); PLATELET ESTIMATE NORMAL (NORMAL)
--- NOTE | 2020-03-09 10:40 | NUR ---
Here for cares. With sterile technique right upper arm PICC dressing change done with insertion site cleansed with ChloraPrep 1, chlorhexidine impregnated disc applied, skin prep, StatLock, and Tegaderm applied. No signs or symptoms of IV complications noted. No concerns voiced. Patient to return next week for cares. Patient voiced understanding of instructions.
[2020-03-09 11:19] LABS: HEMOGLOBIN 10.6 g/dl (12.5-16.0); MEAN CELL VOLUME 87 fl (80.0-100.0); MEAN CORPUSCULAR HEMOGLOBIN 28 pg (27.0-31.0); MEAN CORPUSCULAR HGB CONC 33 g/dl (33.0-37.0); MEAN PLATELET VOLUME 10.2 fl (7.4-10.4); PLATELET COUNT 219 K/mm3 (130-400); RED BLOOD COUNT 3.74 M/mm3 (4.10-5.30)
[2020-03-09 12:03] LABS: HEMATOCRIT 32.4 % (37.0-47.0)
[2020-03-09 12:35] VITALS: BP 89/62; PULSE 80; TEMP 97.8
[2020-03-09 13:52] LABS: BAND 5 % (0-10); EOSINOPHIL 1 % (0-4); LYMPHOCYTE 8 % (20.0-51.0); METAMYELOCYTE 1 % (0-0); NEUTROPHILS 77 % (42.0-75.2); PLATELET ESTIMATE NORMAL (NORMAL)
[2020-03-15 10:30] VITALS: BP 95/68; PULSE 87; TEMP 97.2
--- NOTE | 2020-03-15 10:30 | NUR ---
Here for cares. with sterile technique right upper arm PICC dressing change done with insertion site cleansed with chloraprep x 1, chlorahexidine impreganted disk applied, skin prep, stat lock, and tegaderm applied. no signs or symptoms of IV complications noted. no concerns voiced. re-wrapped with walter to protect catheter. to return next week for cares. voiced understanding of instructions.
[~2020-03-22] VITALS: Ht 162.6 cm; Wt 56.7 kg
--- NOTE | 2020-03-24 10:28 | NUR ---
She did not show up for her appointment on Friday. Attempted to contact patient today and unable to leave voice mail. Her mail box is full.
== END 2020-03-23 09:11 | disposition home or self-care (01) ==
LOC: EUO 10:00
PROVIDERS: Internal Medicine Medical Oncology
DX: C54.2 Malignant neoplasm of myometrium (principal); C78.6 Secondary malignant neoplasm of retroperitoneum and peritoneum